=== PATIENT | female | born 1945 | race Caucasian/White ===

== ENCOUNTER 2024-05-03 12:28 | Emergency (ER) | payer MEDICARE, SELFPAY ==
--- NOTE | 2024-05-03 13:17 | XR_ITS ---
Examination: CT brain head without contrast. 2-D sagittal coronal reconstructions Date and time of exam:May 03, 2024 1355 hours INDICATIONS: Patient fell today with, hit the back of the head, head pain CTDI: vol (mGy):47.4 DLP: (mGycm):924 Technique: Multiple CT axial sections of the brain have been obtained, 5 mm slice thickness. Contrast has not been administered. 2-D sagittal, coronal reconstructions have been obtained Low dose protocols were performed. One or more of the following dose reduction techniques were used; automated exposure control, adjustment of the mA and/or KV according to patient size, use of iterative reconstruction technique. Findings: No significant ventricular enlargement. Intra-axial or extra-axial hemorrhage density is not seen. No mass effect or midline shift Basal cisterns are not remarkable. Fourth ventricle is midline. Cranial vault intact. Impression: Negative for acute hemorrhage, mass effect or midline shift
--- NOTE | 2024-05-03 13:17 | XR_ITS ---
Examination: CT cervical spine without contrast 2-D sagittal reconstructions 2-D coronal reconstructions 3-D reconstructions. Exam date and time:May 03, 2024 1355 hours INDICATIONS: Patient fell today with injury to the neck, neck pain CTDI:vol (mGy) 6.95 DLP: (mGycm) 149 Technique: Multiple 2 mm axial sections of the cervical spine have been obtained. The coronal and sagittal reconstructions have been obtained. 3-D reconstructions have been obtained. Low dose protocols were performed. One or more of the following dose reduction techniques were used; automated exposure control, adjustment of the mA and/or KV according to patient size, use of iterative reconstruction technique. Findings: Axial sections demonstrate intact base of the skull. C1 exhibit satisfactory relationship to the odontoid. No acute cervical vertebral body fracture seen. Alignment posterior spinous processes satisfactory. Impression: No acute cervical fracture.
--- NOTE | 2024-05-03 13:17 | XR_ITS ---
Examination: Wrist, left 3 views Technique: Wrist AP, oblique, lateral 3 views Date and time of exam: May 03, 2024 1319 hours INDICATIONS: Patient fell 3 days ago with injury to the wrist, wrist pain FINDINGS: Severe osteopenia Absent trapezium No acute fracture IMPRESSION: No acute fracture
[2024-05-03 13:18] VITALS: BP 133/78; PULSE 99; RESP 18; TEMP 36.6; O2SAT 99; BMI 21.9
--- NOTE | 2024-05-03 13:18 | PD.EDRME ---
Rapid Medical Screening Exam RME Arrival date/time: 05/03/24 12:28 78-year-old female with a history of hyperlipidemia, presents to the emergency room with a chief complaint of a ground-level fall that occurred 2 days ago. Patient states that since the incident she has had a headache, neck pain, and left wrist pain. Patient states she stopped taking blood thinners 3 months ago. Patient states she was sent over by her primary care provider. I have greeted and performed a focused initial assessment of this patient. A comprehensive ED assessment and evaluation of the patient, analysis of all test results, and completion of the medical decision making process will be conducted by additional ED providers. Chief Complaint: Fall Vital signs reviewed by provider: Yes
--- NOTE | 2024-05-03 15:06 | EDNOTE_ITS ---
ED Fall Injury RME/HPI General Chief Complaint: Fall Stated Complaint: GROUND LEVEL FALL, LEFT HAND/HEAD PAIN Arrival date/time: 05/03/24 12:28 RME / HPI RME / HPI Narrative: 05/03/24 12:28 78-year-old female with a history of hyperlipidemia, presents to the emergency room with a chief complaint of a ground-level fall that occurred 2 days ago. Patient states that since the incident she has had a headache, neck pain, and left wrist pain. Patient states she stopped taking blood thinners 3 months ago. Patient states she was sent over by her primary care provider. I have greeted and performed a focused initial assessment of this patient. A comprehensive ED assessment and evaluation of the patient, analysis of all test results, and completion of the medical decision making process will be conducted by additional ED providers. DR. ALDRICH MAIN ED EVALUATION: 78 year old female presents to the Emergency Department with complaints of a headache, neck pain, and left wrist pain secondary to ground-level fall 2 days ago. Pain is described as aching and rated mild to moderate in severity. PMHx: Hypertension, asthma, and hyperlipidemia Social Hx: No tobacco, alcohol, or substance use. Related Data Home Medications ?Medication ?Instructions ?Recorded ?Confirmed Atorvastatin Calcium 10 mg PO QDAY ##90 03/31/15 10/07/23 Fluoxetine Hcl 20 mg PO DAILY ##180 6 10/07/23 gabapentin 300 mg capsule 600 mg PO QDAY ##270 6 10/07/23 clopidogrel 75 mg tablet 75 mg PO DAILY 10/07/2309/19 metoprolol succinate 25 mg 12.5 mg PO QDAY 10/07/23 tablet,extended release 24 hr Previous Rx's ?Medication ?Instructions ?Recorded pantoprazole 40 mg tablet,delayed 40 mg PO BID 30 days #60 tabs 10/12/23 release ropinirole 0.5 mg tablet 0.5 mg PO DAILY 3 days #3 ta bs 10/12/23 ropinirole 0.5 mg tablet 0.5 mg PO QDAY #3 tabs 10/11 Allergies Allergy/AdvReac Type Severity Reaction Status Date / Time codeine Allergy Severe HIVES Verified 10/07/23 06:02 Review of Systems Review of Systems Systems Reviewed: All systems reviewed, normal except as documented Narrative Review of Systems: GEN: No fever, no chills, no weight loss EYES: No discharge, no visual changes, no pain HEENT: No ear pain, no congestion, no sore throat PULM: No shortness of breath, no cough, no congestion CV: No chest pain, no dyspnea on exertion, no palpitations GI: No nausea, no vomiting, no diarrhea, no pain, no constipation : No frequency, no urgency and no dysuria MUSC/SKEL: + neck pain, + left wrist pain, no back pain SKIN: No rash PSYCH: No hallucinations, no depression HEME/LYMPH: No easy bleeding or bruising tendencies NEURO: No weakness, + headache Past Medical History Past Medical History CARDIAC: Positive Cardiac Disorders, Hypercholesterolemia and Hypertension; Negative Congestive Heart Failure RESPIRATORY: Negative Chronic Obstructive Pulmonary Disease (COPD) or Asthma GENITOURINARY: Negative Renal Disease ENDOCRINE: Negative Diabetes Mellitus Type 1 or Diabetes Mellitus Type 2 HEMATOLOGIC: Negative Sickle Cell Disease Social History SMOKING STATUS: Never smoker SUBSTANCE USE: does not use ED Exam Narrative Physical exam: GENERAL APPEARANCE: alert and oriented x 4, well-developed, well-nourished, no acute distress VITALS: All vitals were reviewed and the pulse ox is 99% on room air, which is normal according to my interpretation. HEENT: Normocephalic, atraumatic; pupils equal, round, reactive to light; EOMI; mucous membranes pink, moist; oropharynx clear NECK: Supple LUNGS: CTABL; no wheezes, no rales, no rhonchi HEART: Regular rate, regular rhythm; normal S1, S2; no murmurs ABDOMEN: non distended; normal BS; soft, no tenderness, no guarding, no rebound; no masses, no organomegaly, no hernia BACK: no CVA tenderness EXTREMITIES: atraumatic; no edema NEUROLOGIC: awake; alert and oriented x4; cranial nerves II-XII grossly intact; no focal sensory or motor deficits PSYCHIATRIC: appropriate mood and affect SKIN: warm, dry, normal color; no rashes Course Quality Measures none Orders Category Date Time Status CT cervical spine wo con Stat Exams 05/03/24 13:[address] head/brain wo con Stat Exams 05/03/24 13:17 Completed XR wrist comp LT min 3V Stat Exams 05/03/24 13:17 Completed Vital Signs Vital signs: Vital Signs Temperature 98 F 05/03/24 13:18 Pulse Rate 99 05/03/24 13:18 Respiratory Rate 18 05/03/24 13:18 Blood Pressure 133/78 H 05/03/24 13:18 Pulse Oximetry (%) 99 05/03/24 13:18 Oxygen Delivery Method Room Air 05/03/24 13:18 Fall MDM Narrative MDM Narrative:: I, Geovanna Nichole, milagros scribing for and in the presence of Dr. Aldrich. Patient data External records reviewed:: [facility] previous records (Reviewed last admission discharge dated 10/12/23, patient admitted for the following: Bowel perforation) Clinical information provided by:: patient Social determinants that could affect healthcare access:: none Patient has the following chronic illnesses:: Hypertension, asthma, and hyperlipidemia How is presenting disease/condition affected by chronic disease/condition?: uneffected by Evaluation data The following diagnostics were reviewed and interpreted by me:: radiology exam(s) Lab and/or radiology exams considered but not ordered:: none Interpretation Summary: Procedure(s): CT cervical spine [facility] Accession Number(s): [id number] cc: Herb Hazel; Ita Gleason DO; Darvin Ovalle MD~ Examination: CT cervical spine without contrast 2-D sagittal reconstructions 2-D coronal reconstructions 3-D reconstructions. Exam date and time:May 03, 2024 1355 hours INDICATIONS: Patient fell today with injury to the neck, neck pain CTDI:vol (mGy) 6.95 DLP: (mGycm) 149 Technique: Multiple 2 mm axial sections of the cervical spine have been obtained. The coronal and sagittal reconstructions have been obtained. 3-D reconstructions have been obtained. Low dose protocols were performed. One or more of the following dose reduction techniques were used; automated exposure control, adjustment of the mA and/or KV according to patient size, use of iterative reconstruction technique. Findings: Axial sections demonstrate intact base of the skull. C1 exhibit satisfactory relationship to the odontoid. No acute cervical vertebral body fracture seen. Alignment posterior spinous processes satisfactory. Impression: No acute cervical fracture. Dictated By: Darvin Ovalel MD ----- Procedure(s): CT head/brain wo con Accession Number(s): [id number] cc: Herb HazelP; Ita Gleason DO; Darvin Ovalle MD~ Examination: CT brain head without contrast. 2-D sagittal coronal reconstructions Date and time of exam:May 03, 2024 1355 hours INDICATIONS: Patient fell today with, hit the back of the head, head pain CTDI: vol (mGy):47.4 DLP: (mGycm):924 Technique: Multiple CT axial sections of the brain have been obtained, 5 mm slice thickness. Contrast has not been administered. 2-D sagittal, coronal reconstructions have been obtained Low dose protocols were performed. One or more of the following dose reduction techniques were used; automated exposure control, adjustment of the mA and/or KV according to patient size, use of iterative reconstruction technique. Findings: No significant ventricular enlargement. Intra-axial or extra-axial hemorrhage density is not seen. No mass effect or midline shift Basal cisterns are not remarkable. Fourth ventricle is midline. Cranial vault intact. Impression: Negative for acute hemorrhage, mass effect or midline shift Dictated By: Darvin Ovalle MD Procedure(s): XR wrist comp LT min 3V Accession Number(s): [id number] cc: Herb Hazel; Ita Gleason DO; Darvin Ovalle MD~ Examination: Wrist, left 3 views Technique: Wrist AP, oblique, lateral 3 views Date and time of exam: May 03, 2024 1319 hours INDICATIONS: Patient fell 3 days ago with injury to the wrist, wrist pain FINDINGS: Severe osteopenia Absent trapezium No acute fracture IMPRESSION: No acute fracture Dictated By: Darvin Ovalle MD Medications / Prescriptions Medications or Prescriptions considered but not ordered:: none Medication administrations:: see above if any Consultations Consultation(s) initiated? (list below): No Diagnosis Fall Differential Diagnosis: fracture of wrist, concussion without loss of consciousness and other (neck fracture, wrist dislocation) Most likely diagnosis given after review of the tests above:: Fall Head injury Contusin of left wrist Admission Indicated Admission indicated?: not indicated Admission Request Was there a request for admission?: No Disposition Plan Disposition Plan: Discharge Discharge Attestation Discharge Attestation: The patient and all family members were given an opportunity to ask questions and understood the discharge instructions. Discharge instructions specifically effects, indications for sooner follow up or return to the emergency department, and the expected course of current diagnosis. Patient condition: Stable Discharge Plan Plan Patient Disposition: HOME (Self Care) Prescriptions/Referrals Prescriptions/Med Rec: No Action Atorvastatin Calcium 10 MG tablet 10 mg PO QDAY Qty: 90 gabapentin 300 MG capsule 600 mg PO QDAY Qty: 270 Rx Instructions: Takes this medication at night time Fluoxetine Hcl 20 MG capsule 20 mg PO DAILY Qty: 180 Rx Instructions: Takes this medication in the morning clopidogrel 75 mg tablet 75 mg PO DAILY Patient Comments: TAKE 1 TABLET BY MOUTH EVERY DAY Rx Instructions: Takes this medication in the morning metoprolol succinate 25 mg tablet extended release 24 hr 12.5 mg PO QDAY Patient Comments: TAKE 1/2 TABLET BY MOUTH DAILY Rx Instructions: takes this medication in the morning pantoprazole 40 mg tablet,delayed release (DR/EC) 40 mg PO BID 30 Days Qty: 60 3RF ropinirole 0.5 mg tablet 0.5 mg PO DAILY 3 Days Qty: 3 0RF Rx Instructions: One pill in the morning, two pills mid day, and two pills at night. ropinirole 0.5 mg tablet 0.5 mg PO QDAY Qty: 3 0RF Referrals: Ita Gleason DO [Primary Care Provider] - In 1 week Problem List Clinical Impression: Fall, Head injury, Contusion of left wrist Patient/Caregiver Discharge Instructions Education Materials: ED Soft Tissue Contusion, ED Head Injury (Adult) Print Language: Setswana Stand Alone Forms: Sulma Award Info., Patient Portal Info Letter
== END 2024-05-03 16:20 | disposition home or self-care (01) ==
PROVIDERS: Emergency Provider Emergency Medicine; PCP Internal Medicine
DX: S09.90XA Unspecified injury of head, initial encounter (principal); S60.212A Contusion of left wrist, initial encounter; W18.30XA Fall on same level, unspecified, initial encounter; M54.2 Cervicalgia
CPT/HCPCS: 70450; 72125; 73110; 99284

== ENCOUNTER → 2024-10-12 | Outpatient (CLI) | payer MEDICARE, SELFPAY | END | disposition home or self-care (01) | LOC: SLDO 16:11 | PROVIDERS: PCP Nurse Practitioner Family; Referring Provider Nurse Practitioner Family; Visit Provider Nurse Practitioner Family | DX: N39.0 Urinary tract infection, site not specified (principal) | CPT/HCPCS: 87077; 87086; 87186 ==